=== PATIENT | male | born 1985 | race American Indian/Alaskan Native ===

== ENCOUNTER 2019-02-22 04:22 | Emergency (ER) | payer SELFPAY ==
[2019-02-22] MEDS ORDERED: Ondansetron 4 MG/2 ML SDV IV ONE (04:37)
[2019-02-22] MEDS ORDERED: Sodium Chloride 0.9% 1,000 ML IV ONE ×2 (04:37→05:21)
--- NOTE | 2019-02-22 04:37 | EDM.PDOC ---
ED HPI GENERAL MEDICAL PROBLEM - General Stated Complaint: CANT BREATH Time Seen by Provider: 02/22/19 04:34 Source of Information: Reports: Patient History Limitations: Reports: No Limitations - History of Present Illness INITIAL COMMENTS - FREE TEXT/NARRATIVE: states started getting sick yesterday with general body aches, no appetite then started vomiting 3 hours ago and hard to breath and hurts in heat area. denies prior h/o. Middle Chest Pain Score (Numeric/FACES): 6 - Related Data Allergies Allergy/AdvReac Type Severity Reaction Status Date / Time No Known Allergies Allergy Verified 02/22/19 04:43 Home Meds: Home Meds . [No Known Home Meds] 02/22/19 [History] ED ROS GENERAL - Review of Systems Review Of Systems: ROS reveals no pertinent complaints other than HPI. ED EXAM, GENERAL - Physical Exam Exam: See Below Exam Limited By: No Limitations General Appearance: Alert, WD/WN, Mild Distress, Other (discomfort) Ears: Hearing Grossly Normal Throat/Mouth: Normal Voice, No Airway Compromise Head: Atraumatic Neck: Non-Tender, Full Range of Motion Respiratory/Chest: No Respiratory Distress, No Accessory Muscle Use, Rhonchi. No: Retractions, Splinting Cardiovascular: Regular Rate, Rhythm GI/Abdominal: Tender, Other (epiG region). No: Guarding, Rigid, Rebound Neurological: Alert, Oriented, Normal Cognition, Normal Gait, No Motor/Sensory Deficits Psychiatric: Flat Affect Skin Exam: Warm, Dry, Normal Color Lymphatic: No Adenopathy Course - Vital Signs Last Recorded V/S: Last Vital Signs Temp 36.7 C 02/22/19 04:25 Pulse 120 H 02/22/19 04:25 Resp 26 H 02/22/19 04:25 BP 159/101 H 02/22/19 04:25 Pulse Ox 97 02/22/19 04:25 - Orders/Labs/Meds Orders: Active Orders 24 hr Category Date Time Status EKG Documentation Completion [RC] STAT Care 02/22/19 04:26 Active Labs: Laboratory Tests 02/22/19 02/22/19 02/22/19 Range/Units 04:30 04:30 04:30 WBC 10.0 (5.0-10.0) 10^3/uL RBC 5.96 (4.6-6.2) 10^6/uL Hgb 19.5 H (14.0-18.0) g/dL Hct 53.3 (40.0-54.0) % MCV 89.4 (80-100) fL MCH 32.7 (27.0-34.0) pg MCHC 36.6 H (33.0-35.0) g/dL Plt Count 221 (150-450) 10^3/uL Neut % (Auto) 72.9 (42.2-75.2) % Lymph % (Auto) 15.9 L (20.5-50.1) % Dougherty % (Auto) 10.6 H (2-8) % Eos % (Auto) 0.1 L (1.0-3.0) % Baso % (Auto) 0.5 (0.0-1.0) % D-Dimer, Quantitative 1360 H (0-400) ng/mL Sodium 138 (135-145) mmol/L Potassium 3.4 L (3.6-5.0) mmol/L Chloride 99 L (101-111) mmol/L Carbon Dioxide 15.0 L (21.0-31.0) mmol/L Anion Gap 27.4 BUN 8 (7-18) mg/dL Creatinine 0.8 (0.6-1.3) mg/dL Est Cr Clr Drug Dosing 141.46 mL/min Estimated GFR (MDRD) > 60 BUN/Creatinine Ratio 10.00 Glucose 253 H (74-105) mg/dL Calcium 9.5 (8.4-10.2) mg/dl Total Bilirubin 1.8 H (0.2-1.0) mg/dL AST 171 H (10-42) IU/L ALT 197 H (10-60) IU/L Alkaline Phosphatase 80 (42-121) IU/L Troponin I < 0.02 (0.00-0.02) ng/ml Total Protein 8.7 H (6.7-8.2) g/dl Albumin 4.6 (3.2-5.5) g/dl Globulin 4.1 Albumin/Globulin Ratio 1.12 Amylase (28-100) U/L Lipase (22-51) U/L Ethyl Alcohol 56 mg/dL 02/22/19 Range/Units 04:30 WBC (5.0-10.0) 10^3/uL RBC (4.6-6.2) 10^6/uL Hgb (14.0-18.0) g/dL Hct (40.0-54.0) % MCV (80-100) fL MCH (27.0-34.0) pg MCHC (33.0-35.0) g/dL Plt Count (150-450) 10^3/uL Neut % (Auto) (42.2-75.2) % Lymph % (Auto) (20.5-50.1) % Dougherty % (Auto) (2-8) % Eos % (Auto) (1.0-3.0) % Baso % (Auto) (0.0-1.0) % D-Dimer, Quantitative (0-400) ng/mL Sodium (135-145) mmol/L Potassium (3.6-5.0) mmol/L Chloride (101-111) mmol/L Carbon Dioxide (21.0-31.0) mmol/L Anion Gap BUN (7-18) mg/dL Creatinine (0.6-1.3) mg/dL Est Cr Clr Drug Dosing mL/min Estimated GFR (MDRD) BUN/Creatinine Ratio Glucose (74-105) mg/dL Calcium (8.4-10.2) mg/dl Total Bilirubin (0.2-1.0) mg/dL AST (10-42) IU/L ALT (10-60) IU/L Alkaline Phosphatase (42-121) IU/L Troponin I (0.00-0.02) ng/ml Total Protein (6.7-8.2) g/dl Albumin (3.2-5.5) g/dl Globulin Albumin/Globulin Ratio Amylase 65 (28-100) U/L Lipase 36 (22-51) U/L Ethyl Alcohol mg/dL Meds: Medications Discontinued Medications Generic Name Dose Route Start Last Admin Trade Name Freq PRN Reason Stop Dose Admin Sodium Chloride 1,000 mls @ 999 mls/hr 02/22/19 04:37 02/22/19 04:44 Normal Saline IV 02/22/19 05:37 999 mls/hr .BOLUS ONE Administration Sodium Chloride 1,000 mls @ 999 mls/hr 02/22/19 05:21 02/22/19 05:35 Normal Saline IV 02/22/19 06:21 999 mls/hr .BOLUS ONE Administration Iopamidol 100 ml 02/22/19 05:21 02/22/19 05:30 Isovue-370 (76%) IVPUSH 02/22/19 05:22 100 ml ONETIME ONE Administration Metoclopramide HCl 10 mg 02/22/19 05:21 02/22/19 05:35 Reglan IVPUSH 02/22/19 05:22 10 mg ONETIME ONE Administration Ondansetron HCl 4 mg 02/22/19 04:37 02/22/19 04:44 Zofran IV 02/22/19 04:38 4 mg ONETIME ONE Administration Pantoprazole Sodium 80 mg 02/22/19 05:04 02/22/19 05:10 Protonix Iv IVPUSH 02/22/19 05:05 80 mg .BOLUS ONE Administration - Re-Assessments/Exams Free Text/Narrative Re-Assessment/Exam: 02/22/19 05:04 ER course pt vomited dark red colour x 2. controlled with zofran 02/22/19 05:22 results discussed with pt re P.E study and elevated LFT. pt states been drinking everyday and plans to stop. 02/22/19 06:38 re-exam; pt feeling better presently. case discussed with Dr Cortes who kindly accepted pt. Departure - Departure Time of Disposition: 06:39 Disposition: DC/Tfer to Acute Hospital 02 Reason for Transfer *Q: Other Condition: Fair Clinical Impression: Upper GI hemorrhage Forms: Interfacility Transfer EMTALA - My Orders Last 24 Hours: My Active Orders 02/22/19 04:26 EKG Documentation Completion [RC] STAT - Assessment/Plan Last 24 Hours: My Active Orders 02/22/19 04:26 EKG Documentation Completion [RC] STAT
[2019-02-22 04:58] LABS: ANION GAP 27.4; CHLORIDE,CL 99 mmol/L (101-111); SODIUM,NA 138 mmol/L (135-145)
[2019-02-22] MEDS ORDERED: Pantoprazole 40 MG Vial IVPUSH ONE (05:04)
[2019-02-22] MEDS ORDERED: Metoclopramide 10 MG/2 ML SDV IVPUSH ONE (05:21)
[2019-02-22] MEDS ORDERED: Iopamidol 755 Mg/ML 100 ML Bottle IVPUSH ONE (05:21)
== END 2019-02-22 07:11 ==
LOC: EDBD → DL.ED 04:22
DX: K92.2 Gastrointestinal hemorrhage, unspecified (principal)
CPT/HCPCS: 36415; 71260; 80053; 82150; 83690; 84484; 85025; 85379; 93005; 96361; 96374; 99285; C9113; G0480; J2405; J2765; J7030; Q9967